=== PATIENT | male | born 1985 ===

== ENCOUNTER 2020-01-21 09:52 | Emergency (ER) | payer BC ==
[2020-01-21] MEDS ORDERED: Boostrix 0.5 ML (Tdap) VIAL ONE ×2 (11:35→11:53)
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
== END 2020-01-21 12:30 | disposition home or self-care (01) ==
LOC: ERS 09:52
DX: S60.011A Contusion of right thumb without damage to nail, initial encounter (principal); S20.219A Contusion of unspecified front wall of thorax, initial encounter; V89.2XXA Person injured in unspecified motor-vehicle accident, traffic, initial encounter; W22.10XA Striking against or struck by unspecified automobile airbag, initial encounter
CPT/HCPCS: 71045; 90471; 90715